=== PATIENT | female | born 1995 | race Caucasian/White ===

== ENCOUNTER 2024-03-17 07:32 | Inpatient (IN) | payer BC, SELFPAY ==
[2024-03-17 07:49] VITALS: BMI 32.9
[2024-03-17 07:51] VITALS: BP 132/76
[2024-03-17] MEDS: LR 1000 IV (08:10)
[2024-03-17 08:33] LABS: Hematocrit 30.1 % (37.0-47.0); Hemoglobin 10.5 g/dL (12.0-16.0); Mean Corp Hgb Conc. 34.9 g/dL (33.0-37.0); Mean Corpuscular Volume 83.1 fL (81.0-99.0); Mean Platelet Volume 9.9 fL (7.4-10.4); Platelet Count 312 10^3/uL (130-400); Red Blood Cell Count 3.62 10^6/uL (4.20-5.40); Red Cell Dist. Width 13.7 % (11.5-14.5); White Blood Cell Count 7.7 10^3/uL (4.8-10.8)
[2024-03-17] MEDS: TYLENOL 1000 MG PO (08:48)
[2024-03-17] MEDS: ANCEF 10 IV (09:17)
[2024-03-17] MEDS: BICITRA 30 ML PO (09:17)
[2024-03-17] MEDS: TORADOL 15 MG IV ×3 (12:28→23:47)
[2024-03-17] MEDS: PITOCIN 30 UNITS/NSS 500 ML IV (13:16)
[2024-03-18 04:39] LABS: Hematocrit 27.1 % (37.0-47.0); Hemoglobin 9.3 g/dL (12.0-16.0); Mean Corp Hgb Conc. 34.3 g/dL (33.0-37.0); Mean Corpuscular Hgb 28.3 pg (27.0-31.0); Mean Corpuscular Volume 82.4 fL (81.0-99.0); Mean Platelet Volume 9.8 fL (7.4-10.4); Platelet Count 255 10^3/uL (130-400); Red Blood Cell Count 3.29 10^6/uL (4.20-5.40); Red Cell Dist. Width 13.6 % (11.5-14.5); White Blood Cell Count 10.7 10^3/uL (4.8-10.8)
[2024-03-18] MEDS: TORADOL 15 MG IV (06:18)
[2024-03-18] MEDS: PRENATAL PLUS 1 TABLET PO (08:21)
[2024-03-18] MEDS: SENOKOT-S 1 TABLET PO (08:21)
[2024-03-18] MEDS: MOTRIN 600 MG PO ×2 (11:56→18:09)
[2024-03-18] MEDS: TYLENOL 650 MG PO (11:56)
--- NOTE | 2024-03-18 13:08 | W.PN.ANS.POP ---
Anesthesia Post Operative
- Anesthesia Post Op Note
Vital Signs Stable-See Nursing Note: Yes
Airway Patent: Yes
Adequate Pain Control: Yes
Change in Mental Status: No
Current Postoperative Nausea & Vomiting: No
Anesthesia Complications: No
General Anesthetic Recall: No
Unplanned Admission: No
Post Op Hydration Adequate: Yes
[2024-03-18] MEDS: FEOSOL 325 MG PO (18:36)
[2024-03-19] MEDS: TYLENOL 650 MG PO ×3 (00:06→12:29)
[2024-03-19] MEDS: MOTRIN 600 MG PO ×3 (00:06→12:29)
[2024-03-19] MEDS: PRENATAL PLUS 1 TABLET PO (08:44)
[2024-03-19] MEDS: SENOKOT-S 1 TABLET PO (08:44)
[2024-03-19] MEDS: FEOSOL 325 MG PO (08:44)
[2024-03-19] MEDS: M-M-R II 0.5 ML SC (09:48)
[2024-03-20 15:43] LABS: Syphilis/T. pallidum Ab Reflex Negative (Negative)
== END 2024-03-19 12:43 | disposition home or self-care (01) | DRG 788 ==
LOC: LDRP 07:32
PROVIDERS: ADMITTING PHYSICIAN Obstetrics & Gynecology; FAMILY PHYSICIAN Family Medicine
PROC: 10D00Z1 Extraction of Products of Conception, Low, Open Approach (ICD-10-PCS; 2024-03-17)
PROC: 10907ZC Drainage of Amniotic Fluid, Therapeutic from Products of Conception, Via Natural or Artificial Opening (ICD-10-PCS; 2024-03-17)
PROC: 3E0134Z Introduction of Serum, Toxoid and Vaccine into Subcutaneous Tissue, Percutaneous Approach (ICD-10-PCS; 2024-03-19)
DX: O34.219 Maternal care for unspecified type scar from previous cesarean delivery (principal); O99.52 Diseases of the respiratory system complicating childbirth; J45.909 Unspecified asthma, uncomplicated; O99.824 Streptococcus B carrier state complicating childbirth; Z37.0 Single live birth; Z3A.39 39 weeks gestation of pregnancy; Z23 Encounter for immunization; Z86.69 Personal history of other diseases of the nervous system and sense organs
CPT/HCPCS: 36415; 85027; 86780; 86850; 86900; 86901; 90707

== ENCOUNTER 2024-05-05 09:06 | Emergency (ER) | payer BC, SELFPAY ==
[2024-05-05 09:15] VITALS: BP 138/80
[2024-05-05 10:34] LABS: % Basophils 0.9 % (0-2); % Eosinophils 3.6 % (0-6); % Immature Granulocytes 0.2 % (0-0.5); % Lymphocytes 25.9 % (20.5-51.1); % Monocytes 6.3 % (1.7-9.3); % Neutrophils 63.1 % (42.2-75.2); Absolute Basophils 0.1 10^3/uL (0-0.2); Absolute Eosinophils 0.2 10^3/uL (0-0.7); Absolute Lymphocytes 1.5 10^3/uL (1.2-3.4); Absolute Monocytes 0.4 10^3/uL (0.1-0.6); Absolute Neutrophils 3.5 10^3/uL (1.4-6.5); Hematocrit 40.2 % (37.0-47.0); Hemoglobin 13.2 g/dL (12.0-16.0); Mean Corp Hgb Conc. 32.8 g/dL (33.0-37.0); Mean Corpuscular Hgb 27.7 pg (27.0-31.0); Mean Corpuscular Volume 84.5 fL (81.0-99.0); Mean Platelet Volume 9.1 fL (7.4-10.4); Nucleated Red Blood Cells % 0 %; Platelet Count 417 10^3/uL (130-400); Red Blood Cell Count 4.76 10^6/uL (4.20-5.40); Red Cell Dist. Width 14.9 % (11.5-14.5); White Blood Cell Count 5.6 10^3/uL (4.8-10.8)
--- NOTE | 2024-05-05 10:44 | ED.GENMED ---
History of Present Illness
<Georgina Walsh PA-C - Last Filed: 05/05/24 13:25>
General
Chief Complaint: Headache
Source: patient
Exam Limitations: none
Time Seen by Provider: 05/05/24 10:39
Nursing documentation reviewed up to this point in time: agreed with
History of Present Illness
History of Present Illness:
This is a 28-year-old female who is 6 weeks presents emergency department today with concerns of headache and blurry vision. Patient states that this started 4 days ago and she felt it in a band across her forehead and she also has
associated blurry vision. Patient states that the headache comes and goes and has not severe in nature, she said that it does relieve and get better with some Tylenol but the associated visual complaints is what concerned her. Patient does wear
prescription glasses and reports that she feels that she may need a new prescription. Patient denies any double vision or visual loss. She also notes transient numbness and tingling in her face. Patient states that she had some transient nausea
last night but denies any vomiting. Patient states that she has no associated medical problems and does not take any medication for her blood pressure. She denies any chest pain or shortness of breath. She denies any swelling in her lower
extremities. She is not currently breast-feeding. She follows with [facility].
Past History
<Georgina Walsh PA-C - Last Filed: 05/05/24 13:25>
Past History
ED Past Medical History: None
ED Past Surgical History: None
Review of Systems
<Georgina Walsh PA-C - Last Filed: 05/05/24 13:25>
Review of Systems
All Other Systems: ROS reviewed and negative except as documented in HPI and ROS
Phy Exam
<Georgina Walsh PA-C - Last Filed: 05/05/24 13:25>
Physical Exam
Physical Exam:
General: Patient is well appearing and in no acute distress; non-toxic
Skin: Warm and dry, no rashes or lesions
Head: Normocephalic, atraumatic
Eyes: Sclera non-icteric. EOMs intact.
Cardiac: Regular rate and rhythm, no murmurs
Peripheral Vascular: No lower extremity swelling or edema
Pulm: Normal respiratory effort, no wheezes, rales, or rhonchi
Musculoskeletal: 5/5 strength in bilateral upper extremities
Neuro: CN II-XII intact, no focal neurologic deficits. Sensation intact bilaterally.
Psychiatric: Appropriate mood and affect.
Course
<Georgina Walsh PA-C - Last Filed: 05/05/24 13:25>
Orders/Labs/Results
Orders:
Orders
05/05/24 10:13
Complete Blood Count/With Diff Urgent
Comprehensive Metabolic Panel Urgent
Magnesium Urgent
UA Reflex to Culture [Urinalysis Reflex To Culture] Urgent
Date Specimen was Collected: 05/05/24
Time Specimen was Collected: 09:56
05/05/24 10:57
Ketorolac [Toradol] 15 mg IV NOW STA
05/05/24 10:58
Visual Acuity- Treatment ONCE
05/05/24 11:29
CT Head W/o Iv Contrast Urgent
Comment:
Reason For Exam: blurry vision, headache, pp
Abnormal Lab Results
05/05/24
10:13
MCHC 32.8 L g/dL
(33.0-37.0)
RDW 14.9 H %
(11.5-14.5)
Plt Count 417 H 10^3/uL
(130-400)
BUN 6 L mg/dl
(7-17)
ALT 38 H U/L
(0-35)
05/05/24 10:13
01/21/25 10:13
Vital Signs
Blood pressure: 114/72
Initial and Last Documented VS:
Initial Vital Signs
Temp Pulse Resp BP Pulse Ox
98.2 F 82 16 138/80 98
05/05/24 09:15 05/05/24 09:15 05/05/24 09:15 05/05/24 09:15 05/05/24 09:15
Last Documented Vital Signs
Temp Pulse Resp BP Pulse Ox
98.2 F 62 16 103/62 98
05/05/24 09:15 05/05/24 13:11 05/05/24 13:11 05/05/24 13:11 05/05/24 13:11
<Leatha Castelan, DO - Last Filed: 05/05/24 13:47>
Orders/Labs/Results
Orders:
Orders
05/05/24 10:13
Complete Blood Count/With Diff Urgent
Comprehensive Metabolic Panel Urgent
Magnesium Urgent
UA Reflex to Culture [Urinalysis Reflex To Culture] Urgent
Date Specimen was Collected: 05/05/24
Time Specimen was Collected: 09:56
05/05/24 10:57
Ketorolac [Toradol] 15 mg IV NOW STA
05/05/24 10:58
Visual Acuity- Treatment ONCE
05/05/24 11:29
CT Head W/o Iv Contrast Urgent
Comment:
Reason For Exam: blurry vision, headache, pp
Abnormal Lab Results
05/05/24
10:13
MCHC 32.8 L g/dL
(33.0-37.0)
RDW 14.9 H %
(11.5-14.5)
Plt Count 417 H 10^3/uL
(130-400)
BUN 6 L mg/dl
(7-17)
ALT 38 H U/L
(0-35)
05/05/24 10:13
05/05/24 10:13
Vital Signs
Initial and Last Documented VS:
Initial Vital Signs
Temp Pulse Resp BP Pulse Ox
98.2 F 82 16 138/80 98
05/05/24 09:15 05/05/24 09:15 05/05/24 09:15 05/05/24 09:15 05/05/24 09:15
Last Documented Vital Signs
Temp Pulse Resp BP Pulse Ox
98.2 F 62 16 103/62 98
05/05/24 09:15 05/05/24 13:11 05/05/24 13:11 05/05/24 13:11 05/05/24 13:11
Anatoliylt;Georgina Walsh PA-C - Last Filed: 05/05/24 13:25>
MDM/Problems Addressed
Differential Diagnosis Includes:
Tension headache, migraine headache, preeclampsia, IIH, MS
MDM/Problems Addressed:
This is a 28-year-old female 6 weeks who presents to the emergency department today with concerns of blurry vision and headaches. This started a few days ago. The headaches are on and off. They do get better with acetaminophen.
Patient also has paresthesias on the left side of her face. She does not take any medications daily, is not on anything for blood pressure. Here in the emergency department, she is well-appearing, she was mildly hypertensive to 130/80 when she
arrived however her blood pressure resolved to 114/72 prior to any interventions for pain. She has no focal neurologic deficits. Sensation is intact. No cranial nerve palsy. She is given Toradol. This relieved her headache and her blurry vision
did resolve. She got a CAT scan of her head which was normal and did not show any fluid collections or mass patient states that she usually wears glasses at baseline but notes her right eye is known to be worse than her left. She does not have her
glasses with her today. Her visual acuity today was 20/60 in the right and 20/25 in the left and 20/30 in both eyes. No concerning findings for preeclampsia with labs or urine. Most suspicious for tension headache/complex migraine however
MS/pseudotumor cannot be ruled out today. Considering patient has no visual loss (right eye known to be worse than the left), I think it is reasonable to have an outpatient workup done. I did offer patient admission and did offer LP. However
patient's symptoms did resolve. I did stress the importance of outpatient follow up with neurology and establishing care with ophthalmology. Patent expressed understanding. Patient stable for discharge.
Chronic conditions affecting care:
asthma
Acute Exacerbation and/or Progression of Chronic Illness:
n/a
<Georgina Walsh PA-C - Last Filed: 05/05/24 13:25>
*Pulse Oximetry
Patient hypoxic: no
*Critical Care Note
Total Time (30-74mins, 75-104mins- exclusive of procedures): Not Applicable
Data Reviewed
Review of Other/Old Records Reveals: Records (Reviewed [facility], reviewed ER physician documentation from 11/29/2022, patient seen for abdominal pain and discharge, reviewed discharge summary from 03/23/2024 patient had on 03/17/2024)
Source: patient
Prescriptions/Medications Considered But Not Given:
n/a
Further Testing Considered But Not Given:
n/a
<Georgina Walsh PA-C - Last Filed: 05/05/24 13:25>
Patient Management
Escalation/DeEscalation of care consider admission/obs:
Admit not indicated, patient stable for discharge
ED Attending Note
<CHRISTINE Mtz Last Filed: 05/05/24 13:25>
-
Portions of this chart may have been created with voice recognition software.� Occasional wrong word or��sound alike� substitutions may have occurred due to the inherent limitations of voice recognition software.
<Leatha Castelan DO - Last Filed: 05/05/24 13:47>
ED Attending Note
Patient seen and examined by attending physician: Yes
I performed a history and physical exam of patient and discussed management with resident, I reviewed resident's note and agree with documented findings and plan of care.: Yes
ED Attending Note:
I have reviewed and agree with Georgina Walsh PA-C's history and treatment plan. My exam revealed cranial nerves II through grossly intact no focal deficits. Normal finger-nose. Sensation intact and equal throughout face and bilateral
upper/lower extremities. PERRLA, EOMI. No pronator drift. Patient states that headache and blurry vision is improved with Toradol. Hemodynamically stable. Stable for discharge with neurology/ophthalmology follow-up
Discharge Plan
Departure
Patient Disposition: Home (Routine Discharge)
Date of Disposition: 05/05/24
Time of Disposition: 12:56
Patient with high blood pressure during this ER visit?: Yes
Condition: Good
Discharge Problem:
Headache, Blurred vision
Instructions: Headache, Adult (DC)
Prescriptions:
No Action
Vitamin 1 EACH tablet
1 tab PO DAILY
ferrous sulfate [FeroSul] 325 mg (65 mg iron) Tablet
325 mg PO DAILY Qty: 0 0RF
ibuprofen 600 mg Tablet
600 mg PO Q6HPRN PRN (Reason: cramps) Qty: 60 0RF
acetaminophen 325 mg Tablet
650 mg PO Q4HPRN PRN (Reason: mild pain) Qty: 0 0RF
sennosides-docusate sodium 8.6-50 mg Tablet
1 tab PO DAILYPRN PRN (Reason: constipation) Qty: 0 0RF
Referrals:
Alexi Palma MD [Active] - Call in 1-3 days for appt
UNKNOWN - PT DOES,NOT KNOW [Family Provider] -
Activity Restrictions/Additional Instructions:
Please call � to schedule an appointment with Dr. Marianna Bower neurologist in [place]. You may need a brain MRI for further evaluation of your symptoms. We also recommend establishing care with an cable tv installer again for a full
eye exam, please call the attached number for an appointment.
PLEASE RETURN EMERGENCY DEPARTMENT SHOULD YOU EXPERIENCE VISUAL LOSS, DOUBLE VISION, FEVER, NECK STIFFNESS, SYNCOPAL EPISODES, LIGHTHEADEDNESS, CHEST PAIN, SHORTNESS OF BREATH, DIZZINESS, OR ANY OTHER SIGNS OR SYMPTOMS WORRISOME TO YOU.
Interventions
Interventions:
*Risk Screen - Suicide Last Done: 05/05/24 10:10
*General Assessment Last Done: 05/05/24 11:00
*Neglect/Abuse Screening Last Done: 05/05/24 10:10
ED- Fall Risk Assessment Last Done: 05/05/24 11:00
*ED COVID-19 Vaccine History Last Done: 05/05/24 11:00
*Nursing Disposition Last Done: 05/05/24 13:12
ED- Neurological Assessment Last Done: 05/05/24 11:00
Discharge Date and Time
Discharge Date/Time: 05/05/24 13:12
Print Language: [place]
[2024-05-05 10:55] LABS: Urine Albumin Negative (Neg - Trace); Urine Bilirubin Negative (Negative); Urine Character Clear (Clear); Urine Color Straw; Urine Glucose Negative (Negative); Urine Ketone Negative (Negative); Urine Leukocyte Negative (Negative); Urine Nitrite Negative (Negative); Urine Occult Blood Negative (Negative); Urine Specific Gravity 1.005 (<1.030); Urine Urobilinogen Negative (Neg - 1+)
[2024-05-05 11:00] VITALS: BP 124/63
[2024-05-05 11:06] LABS: ALT (SGPT) 38 U/L (0-35); AST (SGOT) 29 U/L (14-36); Albumin 4.2 g/dl (3.5-5.0); Alkaline Phosphatase 109 U/L (38-126); Blood Urea Nitrogen 6 mg/dl (7-17); Calcium 9.1 mg/dl (8.4-10.2); Carbon Dioxide 23 mmol/L (22-30); Chloride 107 mmol/L (98-107); Glucose 99 mg/dl (70-99); Magnesium 1.9 mg/dl (1.6-2.3); Potassium 4.3 mmol/L (3.5-5.1); Sodium 141 mmol/L (135-145); Total Bilirubin 0.2 mg/dl (0.2-1.3); Total Protein 6.8 g/dl (6.3-8.2); eGFR > 60.00
[2024-05-05] MEDS: TORADOL 15 MG IV (11:13)
[2024-05-05 13:11] VITALS: BP 103/62
== END 2024-05-05 13:12 | disposition home or self-care (01) ==
LOC: EMR 09:06
PROVIDERS: EMERGENCY PHYSICIAN Emergency Medicine
DX: O90.89 Other complications of the puerperium, not elsewhere classified (principal); R51.9 Headache, unspecified; H53.8 Other visual disturbances; I10 Essential (primary) hypertension
CPT/HCPCS: 99284; 96374; 70450; 80053; 81003; 83735; 85025

== ENCOUNTER 2024-06-09 18:20 | Emergency (ER) | payer BC, SELFPAY ==
[2024-06-09 18:39] VITALS: BP 109/73
[2024-06-09 19:33] LABS: Urine Albumin 1+ (Neg - Trace); Urine Bilirubin Negative (Negative); Urine Character Clear (Clear); Urine Color Yellow; Urine Glucose Negative (Negative); Urine Ketone Negative (Negative); Urine Leukocyte 1+ (Negative); Urine Nitrite Negative (Negative); Urine Occult Blood 1+ (Negative); Urine Urobilinogen Negative (Neg - 1+)
[2024-06-09 19:47] LABS: Urine Squamous Cell >30 /LPF (Few)
[2024-06-09 19:49] LABS: Urine Bacteria Many (Negative)
[2024-06-09 19:52] LABS: Urine White Cell 16-20 /HPF (0-5)
--- NOTE | 2024-06-09 21:40 | ED.GENMED ---
History of Present Illness
General
Chief Complaint: Back Pain
Source: patient and spouse
Exam Limitations: none
Time Seen by Provider: 06/09/24 21:18
Nursing documentation reviewed up to this point in time: agreed with
History of Present Illness
History of Present Illness:
29-year-old female with history of asthma presents to the emergency department for evaluation of right flank/low back pain. Patient reports symptoms started about 2 weeks ago and have generally gotten worse. She reports an aching pain in the right
flank that occasionally becomes more sharp; pain radiates across the back and lately has been radiating towards the lower abdomen. Somewhat worse with movement, no relieving factors noted; tried Motrin without relief. She denies any injury or
trauma. She denies any radicular pain, saddle anesthesia, incontinence, weakness in the legs or numbness in the legs. She has not noted any dysuria or hematuria or change in frequency but she does report a history of frequent UTIs. She has not
had any vaginal bleeding or discharge. No fever or chills. She denies any other complaints.
Past History
Past History
ED Past Medical History: None
ED Past Surgical History: None
Review of Systems
Review of Systems
All Other Systems: ROS reviewed and negative except as documented in HPI and ROS
Constitutional: Denies fever or chills
Respiratory: Denies trouble breathing
Cardiac: Denies chest pain
ABD/GI: Reports abdominal pain; Denies nausea or vomiting
: Reports flank pain; Denies dysuria or frequency
Musculoskeletal: Reports back pain; Denies neck pain
Neurological: Denies dizzy, headache, weakness or numbness
Phy Exam
Physical Exam
Physical Exam:
General: Awake, alert; no acute distress
Head: Normocephalic, atraumatic
Eyes: Conjunctiva normal
Throat: Airway intact, handling secretions
Neck: Trachea midline
Lungs: Clear to auscultation bilaterally, no wheezing, rales, rhonchi
Heart: Regular rate and rhythm, no murmurs, gallops, or rubs
Abd: Soft, non distended, nontender
Back: No tenderness in the thoracic or lumbar spine or in the paraspinal region but she does have some CVA tenderness to percussion on the right
Neuro: Cranial nerves grossly intact, speech fluid; motor intact in lower extremities
Skin: no rash in area of concern
Extremities: No edema in extremities, no calf tenderness, equal pulses in all extremities
Scores
Heart Failure Risk
Heart Failure Risk Score: Not Applicable
Heart Score for Chest Pain Patients
STEMI patient?: Not applicable
Withdrawal Assessment of Alcohol
Withdrawal Assessment Completed?: Not applicable
Course
Orders/Labs/Results
Orders:
Orders
06/09/24 19:28
Urinalysis Reflex To Culture Urgent
Date Specimen was Collected: 06/09/24
Time Specimen was Collected: 18:45
Urine Microscopic Reflex Cult Urgent
Urine Culture Urgent
DOMINGUEZ Source: U
Specimen Description:
Date Specimen was Collected: 06/09/24
Time Specimen was Collected: 18:45
06/09/24 21:38
CT Abd/pelvis W Iv Cont Urgent
Comment:
Reason For Exam: right flank pain
Ketorolac [Toradol] 15 mg IV NOW STA
06/09/24 21:39
Test Result ONCE
06/09/24 21:40
0.9% Sodium Chloride 500 ml [Nss] 500 ml IV BOLUS
06/09/24 22:17
Complete Blood Count/With Diff Urgent
Comprehensive Metabolic Panel Urgent
D-Dimer Urgent
HCG, Serum Qualitative Screen Urgent
Abnormal Lab Results
06/09/24 06/09/24
19:28 22:17
Hct 36.3 L %
(37.0-47.0)
Total Protein 6.2 L g/dl
(6.3-8.2)
Ur Occult Blood Reflex 1+ A
(Negative)
Leukocyte Esterase Rfl 1+ A
(Negative)
Urine RBC 3-6 A /HPF
(0-2)
Urine WBC (Reflex) 16-20 A /HPF
(0-5)
Urine Bacteria (Reflex) Many A
(Negative)
Urine Albumin (Reflex) 1+ A
(Neg - Trace)
06/09/24 22:17
06/09/24 22:17
Vital Signs
Initial and Last Documented VS:
Initial Vital Signs
Temp Pulse Resp BP Pulse Ox
36.6 C 86 18 109/73 99
06/09/24 18:39 06/09/24 18:39 06/09/24 18:39 06/09/24 18:39 06/09/24 18:39
Last Documented Vital Signs
Temp Pulse Resp BP Pulse Ox
36.6 C 86 18 109/73 99
06/09/24 18:39 06/09/24 18:39 06/09/24 18:39 06/09/24 18:39 06/09/24 18:39
MDM/Problems Addressed
Differential Diagnosis Includes:
Pyelonephritis/UTI, nephrolithiasis, musculoskeletal back pain, PE considered less likely
MDM/Problems Addressed:
29-year-old female presents for evaluation of right flank/back pain radiating across the back and now lower abdomen; ongoing for 2 weeks but worsening recently. Vitals and exam as above. She had a urinalysis sent in triage which was concerning for
possible infection with bacteria and pyuria however did have many squamous cells suggesting contaminated sample. Will plan to place an IV send labs including a CBC and a CMP, hCG. Check CT abdomen pelvis. Check D-dimer. Treat with Toradol.
Reassess after the above.
Labs reviewed: CBC and CMP no clinically significant abnormalities. hCG negative. D-dimer negative. CT abdomen pelvis no acute pathology noted. While her urinalysis is abnormal she is not having urinary symptoms; nevertheless given her flank
pain I think it would be reasonable to cover with antibiotics in case of ascending infection although CT did not show any suggestion of pyelonephritis. I suspect more likely this is a musculoskeletal pain we will prescribe short-term pain control.
Advised stretching and heat. Follow-up with PCP. She is comfortable with this plan. All questions answered.
*Radiology
Radiology exam reviewed: radiology read reviewed
*Pulse Oximetry
Patient hypoxic: no
*Critical Care Note
Total Time (30-74mins, 75-104mins- exclusive of procedures): Not Applicable
Data Reviewed
Review of Other/Old Records Reveals: Labs and Records
Source: patient and spouse
ED Attending Note
-
Portions of this chart may have been created with voice recognition software.� Occasional wrong word or��sound alike� substitutions may have occurred due to the inherent limitations of voice recognition software.
Discharge Plan
Departure
Patient Disposition: Home (Routine Discharge)
Date of Disposition: 06/09/24
Time of Disposition: 23:28
Patient with high blood pressure during this ER visit?: No
Discharge Problem:
Flank pain, UTI (urinary tract infection)
Instructions: Flank Pain ED
Prescriptions:
New
cefdinir 300 mg capsule
300 mg PO BID Qty: 20 0RF
tramadol 50 mg tablet
50 mg PO BID PRN (Reason: Pain) Qty: 10 0RF
lidocaine 5 % adhesive patch,medicated
1 patch topical DAILY Qty: 15 0RF
No Action
Vitamin 1 EACH tablet
1 tab PO DAILY
ferrous sulfate [FeroSul] 325 mg (65 mg iron) Tablet
325 mg PO DAILY Qty: 0 0RF
ibuprofen 600 mg Tablet
600 mg PO Q6HPRN PRN (Reason: cramps) Qty: 60 0RF
acetaminophen 325 mg Tablet
650 mg PO Q4HPRN PRN (Reason: mild pain) Qty: 0 0RF
sennosides-docusate sodium 8.6-50 mg Tablet
1 tab PO DAILYPRN PRN (Reason: constipation) Qty: 0 0RF
Referrals:
Slade Hoffman MD [Family Provider] - Follow up in 2-3 days
Activity Restrictions/Additional Instructions:
Thank you for visiting the Emergency Department at [facility].
1. Please schedule a follow up appointment as directed. Call first thing tomorrow morning to make an appointment.
2. If indicated, please take your medications as instructed and indicated on discharge paperwork.
3. If any of your symptoms do not improve, or persist, or become more severe within 6-12 hours, please return to the emergency department for further care.
4. Please return to the emergency department if you develop a headache, neck pain/stiffness, fever greater than 100.4F, chest pain, shortness of breath, persistent nausea, vomiting, slurred speech, difficulty walking, numbness/tingling, weakness,
signs of infection or any other symptoms that are worrisome to you.
Please call [phone] if you have any questions.
Interventions
Interventions:
*Risk Screen - Suicide Last Done: 06/09/24 20:54
*General Assessment Last Done: 06/09/24 22:20
*Neglect/Abuse Screening Last Done: 06/09/24 20:54
*ED COVID-19 Vaccine History Last Done: 06/09/24 18:39
ED-Musculoskeletal Assessment Last Done: 06/09/24 22:20
Discharge Date and Time
Print Language: SWAZI
[2024-06-09 22:25] LABS: % Basophils 0.9 % (0-2); % Immature Granulocytes 0.3 % (0-0.5); % Lymphocytes 30.4 % (20.5-51.1); % Monocytes 8.3 % (1.7-9.3); % Neutrophils 57.1 % (42.2-75.2); Absolute Basophils 0.1 10^3/uL (0-0.2); Absolute Eosinophils 0.2 10^3/uL (0-0.7); Absolute Lymphocytes 2.3 10^3/uL (1.2-3.4); Absolute Monocytes 0.6 10^3/uL (0.1-0.6); Absolute Neutrophils 4.4 10^3/uL (1.4-6.5); Hematocrit 36.3 % (37.0-47.0); Hemoglobin 12.1 g/dL (12.0-16.0); Mean Corp Hgb Conc. 33.3 g/dL (33.0-37.0); Mean Corpuscular Hgb 28.7 pg (27.0-31.0); Nucleated Red Blood Cells % 0 %; Platelet Count 358 10^3/uL (130-400); Red Blood Cell Count 4.22 10^6/uL (4.20-5.40); White Blood Cell Count 7.7 10^3/uL (4.8-10.8)
[2024-06-09 22:39] LABS: D-Dimer < 0.27 ug/mlFEU (0.00-0.50)
[2024-06-09 22:43] LABS: ALT (SGPT) 16 U/L (0-35); AST (SGOT) 24 U/L (14-36); Albumin 3.8 g/dl (3.5-5.0); Alkaline Phosphatase 80 U/L (38-126); Blood Urea Nitrogen 9 mg/dl (7-17); Calcium 8.8 mg/dl (8.4-10.2); Carbon Dioxide 23 mmol/L (22-30); Chloride 105 mmol/L (98-107); Glucose 92 mg/dl (70-99); HCG, Serum Qualitative Screen Negative; Potassium 4.2 mmol/L (3.5-5.1); Sodium 135 mmol/L (135-145); Total Bilirubin 0.8 mg/dl (0.2-1.3); Total Protein 6.2 g/dl (6.3-8.2); eGFR > 60.00
[2024-06-09] MEDS: TORADOL 15 MG IV (23:03)
[2024-06-09] MEDS: NSS 500 IV (23:12)
[2024-06-09] MEDS: ROCEPHIN 1000 MG IV (23:42)
== END 2024-06-09 23:54 | disposition home or self-care (01) ==
LOC: EMR 18:20
PROVIDERS: Emergency Medicine; EMERGENCY PHYSICIAN Emergency Medicine; FAMILY PHYSICIAN Family Medicine
DX: N39.0 Urinary tract infection, site not specified (principal); R10.9 Unspecified abdominal pain; M54.50 Low back pain, unspecified; J45.909 Unspecified asthma, uncomplicated; Z87.440 Personal history of urinary (tract) infections
CPT/HCPCS: 99284; 96375; 96361; 96374; 74177; 80053; 81003; 81015; 84703; 85025; 85379; 87086; Q9967